=== PATIENT | female | born 1975 | race Caucasian/White ===

== ENCOUNTER 2017-03-17 17:44 | Emergency (ER) | payer OTHER ==
[~2017-03-17] VITALS: Ht 160 cm; Wt 70.0 kg
[~2017-03-17 17:44] MED LIST: AMLO10 PO; CIPR500T4 PO; LORTA5 PO; ZOFR4TAB3 SL
[2017-03-17 17:49] VITALS: BP 149/89; PULSE 79; RESP 16; TEMP 98.5; O2SAT 100
[2017-03-17] MEDS ORDERED: SUBO8MIS SL (17:58)
[2017-03-17] MEDS ORDERED: CLON0.2T PO (17:58)
[2017-03-17 18:11] LABS: BLOOD, URINE NEG (NEG); GLUCOSE,URINE NEG (NEG); KETONE, URINE NEG (NEG); NITRITE,URINE NEG (NEG)
[2017-03-17 18:18] LABS: URINE COLOR STRAW (YELLW/STRAW)
[2017-03-17 18:19] LABS: COMMENT (UR) CULT NOT INDICATED; CULTURE IF INDICATED CULT NOT INDICATED; SQUAMOUS EPITHELIAL CELL URINE 0-5 /hpf (0-5)
--- NOTE | 2017-03-17 18:22 | PD ---
HPI Chief Complaint: Flank/Kidney Pain Time Seen by Provider: 18:01 Travel History International Travel<30 days: No Contact w/Intl Traveler<30days: No Traveled to known affect area: No History of Present Illness HPI Patient is a 41-year-old female who presents to emergency room with complaints of possible UTI. Reports that for the past week, she has noticed a strong odor from her urine as well as dark urine. Reports that she self medicated with her mother's amoxicillin with no relief of symptoms. Patient reports that now she has pain to her right kidney, reports no fevers or chills, she is concerned that she is progressing into a kidney infection as this has happened in the past. Denies urinary frequency or urgency or hematuria or dysuria at this time. Denies n/v, constipation/diarrhea. PFSH Past Medical History Hx Anticoagulant Therapy: No Autoimmune Disease: Yes (RELAPSING POLYCHONDRITIS) Anxiety: Yes Cardiovascular Problems: Yes (HTN) Diabetes: No Diminished Hearing: No Hypertension: Yes Immunizations Current: Yes Tetanus Vaccination: > 5 Years Influenza Vaccination: No ?: Not Menopausal: No : 5 Para: 2 Miscarriage: 2 : 1 Dilation and Curettage (D&C): Yes (1999, 2002) Past Surgical History Cholecystectomy: Yes Gynecologic Surgery: Yes (ENDOMETRIAL ABLATION) Social History Alcohol Use: Yes (occ) Tobacco Use: Yes (1 PPD ) Substance Use: No Allergies-Medications (Allergen,Severity, Reaction): Coded Allergies: Toradol (Verified Allergy, Severe, FACIAL SWELLING, 03/17/17) Reported Meds & Prescriptions Reported Meds & Active Scripts Active Reported Suboxone Sublingual Film (Buprenorphine-Naloxone Sublingual Film) 8-2 Mg Film 1 Film SL Unique ID number required: Clonidine (Clonidine HCl) 0.2 Mg Tab 0.2 Mg PO BID Review of Systems General / Constitutional: No: Fever Eyes: No: Visual changes HENT: No: Headaches Cardiovascular: No: Chest Pain or Discomfort Respiratory: No: Shortness of Breath Gastrointestinal: No: Abdominal Pain Genitourinary: Positive: Other (right sided flank pain, "dark urine"), No: Urgency, Frequency, Dysuria, Nocturia, Hematuria, Hesitancy Musculoskeletal: No: Pain Skin: No Rash Neurologic: No: Weakness Psychiatric: No: Depression Endocrine: No: Polydipsia Hematologic/Lymphatic: No: Easy Bruising Physical Exam Narrative GENERAL: nad, nontoxic SKIN: Focused skin assessment warm/dry. HEAD: Atraumatic. Normocephalic. ENT: No nasal bleeding or discharge. Mucous membranes pink and moist. NECK: Trachea midline. No JVD. CARDIOVASCULAR: Regular rate and rhythm. No murmur appreciated. RESPIRATORY: No accessory muscle use. Clear to auscultation. Breath sounds equal bilaterally. GASTROINTESTINAL: Abdomen soft, non-tender, nondistended. MUSCULOSKELETAL: No obvious deformities. No clubbing. No cyanosis. No edema. NEUROLOGICAL: Awake and alert.Normal speech. PSYCHIATRIC: Appropriate mood and affect; insight and judgment normal. Data Data Last Documented VS Vital Signs Date Time Temp Pulse Resp B/P Pulse Ox O2 Delivery O2 Flow Rate FiO2 03/17/17 18:24 68 16 147/80 99 Room Air 03/17/17 17:49 98.5 Orders Urinalysis - C+S If Indicated (03/17/17 17:48) Ed Urine Pregnancytest Poc (03/17/17 18:01) Basic Metabolic Panel (Bmp) (03/17/17 18:02) Complete Blood Count With Diff (03/17/17 18:02) Iv Access Insert/Monitor (03/17/17 18:02) Labs Laboratory Tests Test 03/17/17 03/17/17 18:00 18:15 Urine Color STRAW Urine Turbidity CLEAR Urine pH 7.0 Urine Specific [place] Pos 1.003 Urine Protein NEG mg/dL Urine Glucose (UA) NEG mg/dL Urine Ketones NEG mg/dL Urine Occult Blood NEG Urine Nitrite NEG Urine Bilirubin NEG Urine Leukocyte Esterase NEG Urine Squamous Epithelial 0-5 /hpf Cells Microscopic Urinalysis Comment CULT NOT INDICATED White Blood Count 12.8 TH/MM3 Red Blood Count 4.79 MIL/MM3 Hemoglobin 14.6 GM/DL Hematocrit 42.8 % Mean Corpuscular Volume 89.4 FL Mean Corpuscular Hemoglobin 30.5 PG Mean Corpuscular Hemoglobin 34.1 % Concent Red Cell Distribution Width 12.7 % Platelet Count 205 TH/MM3 Mean Platelet Volume 9.5 FL Neutrophils (%) (Auto) 46.4 % Lymphocytes (%) (Auto) 42.3 % Monocytes (%) (Auto) 7.7 % Eosinophils (%) (Auto) 2.4 % Basophils (%) (Auto) 1.2 % Neutrophils # (Auto) 5.9 TH/MM3 Lymphocytes # (Auto) 5.4 TH/MM3 Monocytes # (Auto) 1.0 TH/MM3 Eosinophils # (Auto) 0.3 TH/MM3 Basophils # (Auto) 0.2 TH/MM3 CBC Comment AUTO DIFF Sodium Level 139 MEQ/L Potassium Level 4.3 MEQ/L Chloride Level 103 MEQ/L Carbon Dioxide Level 30.0 MEQ/L Anion Gap 6 MEQ/L Blood Urea Nitrogen 10 MG/DL Creatinine 0.72 MG/DL Estimat Glomerular Filtration 90 ML/MIN Rate Random Glucose 87 MG/DL Calcium Level 8.9 MG/DL MDM Medical Decision Making Medical Screen Exam Complete: Yes Emergency Medical Condition: Yes Interpretation(s) Vital Signs Date Time Temp Pulse Resp B/P Pulse Ox O2 Delivery O2 Flow Rate FiO2 03/17/17 17:51 79 16 03/17/17 17:49 98.5 79 16 149/89 100 Differential Diagnosis UTI, pyelonephritis, electrolyte abnormality Narrative Course 41-year-old female who presents to emergency room for evaluation of UTI versus pyelonephritis. VSS at this time. UA as well as bmp ordered. Laboratory Tests Test 03/17/17 18:00 Urine Color STRAW (YELLW/STRAW) Urine Turbidity CLEAR (CLEAR) Urine pH 7.0 (5.0-8.5) Urine Specific [place] Pos 1.003 (1.002-1.035) Urine Protein NEG mg/dL (NEG-TRACE) Urine Glucose (UA) NEG mg/dL (NEG) Urine Ketones NEG mg/dL (NEG) Urine Occult Blood NEG (NEG) Urine Nitrite NEG (NEG) Urine Bilirubin NEG (NEG) Urine Leukocyte Esterase NEG (NEG) Urine Squamous Epithelial 0-5 /hpf (0-5) Cells Microscopic Urinalysis Comment CULT NOT INDICATED UA with no leuk esterase, no nitrites, no blood, patient with most likely dehyrated and not drinking enough fluids which could explain dark urine. Laboratory Tests Test 03/17/17 03/17/17 18:00 18:15 Urine Color STRAW (YELLW/STRAW) Urine Turbidity CLEAR (CLEAR) Urine pH 7.0 (5.0-8.5) Urine Specific [place] Pos 1.003 (1.002-1.035) Urine Protein NEG mg/dL (NEG-TRACE) Urine Glucose (UA) NEG mg/dL (NEG) Urine Ketones NEG mg/dL (NEG) Urine Occult Blood NEG (NEG) Urine Nitrite NEG (NEG) Urine Bilirubin NEG (NEG) Urine Leukocyte Esterase NEG (NEG) Urine Squamous Epithelial 0-5 /hpf (0-5) Cells Microscopic Urinalysis Comment CULT NOT INDICATED White Blood Count 12.8 TH/MM3 (4.0-11.0) Red Blood Count 4.79 MIL/MM3 (4.00-5.30) Hemoglobin 14.6 GM/DL (11.6-15.3) Hematocrit 42.8 % (35.0-46.0) Mean Corpuscular Volume 89.4 FL (80.0-100.0) Mean Corpuscular Hemoglobin 30.5 PG (27.0-34.0) Mean Corpuscular Hemoglobin 34.1 % Concent (32.0-36.0) Red Cell Distribution Width 12.7 % (11.6-17.2) Platelet Count 205 TH/MM3 (150-450) Mean Platelet Volume 9.5 FL (7.0-11.0) Neutrophils (%) (Auto) 46.4 % (16.0-70.0) Lymphocytes (%) (Auto) 42.3 % (9.0-44.0) Monocytes (%) (Auto) 7.7 % (0.0-8.0) Eosinophils (%) (Auto) 2.4 % (0.0-4.0) Basophils (%) (Auto) 1.2 % (0.0-2.0) Neutrophils # (Auto) 5.9 TH/MM3 (1.8-7.7) Lymphocytes # (Auto) 5.4 TH/MM3 (1.0-4.8) Monocytes # (Auto) 1.0 TH/MM3 (0-0.9) Eosinophils # (Auto) 0.3 TH/MM3 (0-0.4) Basophils # (Auto) 0.2 TH/MM3 (0-0.2) CBC Comment AUTO DIFF Sodium Level 139 MEQ/L (136-145) Potassium Level 4.3 MEQ/L (3.5-5.1) Chloride Level 103 MEQ/L (98-107) Carbon Dioxide Level 30.0 MEQ/L (21.0-32.0) Anion Gap 6 MEQ/L (5-15) Blood Urea Nitrogen 10 MG/DL (7-18) Creatinine 0.72 MG/DL (0.50-1.00) Estimat Glomerular Filtration 90 ML/MIN (>89) Rate Random Glucose 87 MG/DL (74-106) Calcium Level 8.9 MG/DL (8.5-10.1) ua benign, workup benign, patient does not have uti, discussed need to drink plenty of fluids, will have her return to ER as needed. patient happy with plan of care Diagnosis Primary Impression: Dehydration Additional Impression: Right flank pain Patient Instructions: General Instructions Additional Instructions: Please follow up with your primary care doctor Return to ER if symptoms worsen or progress Return to ER as needed Please drink plenty of fluids Take acetaminophen for pain Disposition: 01 DISCHARGE HOME Condition: Stable Elsa Pereira DO Mar 17, 2017 18:22
[2017-03-17 18:24] VITALS: BP 147/80; PULSE 68; RESP 16; O2SAT 99
[2017-03-17 18:24] LABS: AUTOMATED NEUTROPHIL # 5.9 TH/MM3 (1.8-7.7); BASOPHIL # 0.2 TH/MM3 (0-0.2); BASOPHIL % 1.2 % (0.0-2.0); EOSINOPHIL # 0.3 TH/MM3 (0-0.4); EOSINOPHIL % 2.4 % (0.0-4.0); HEMATOCRIT 42.8 % (35.0-46.0); LYMPH % 42.3 % (9.0-44.0); LYMPHOCYTE # 5.4 TH/MM3 (1.0-4.8); MEAN CELL VOLUME 89.4 FL (80.0-100.0); MEAN CORPUSCULAR HEMOGLOBIN 30.5 PG (27.0-34.0); MEAN CORPUSCULAR HGB CONC 34.1 % (32.0-36.0); MONO % 7.7 % (0.0-8.0); NEUT % 46.4 % (16.0-70.0); PLATELET COUNT 205 TH/MM3 (150-450); RED BLOOD COUNT 4.79 MIL/MM3 (4.00-5.30); RED CELL DISTRIBUTION WIDTH 12.7 % (11.6-17.2); WHITE BLOOD COUNT 12.8 TH/MM3 (4.0-11.0)
[2017-03-17 18:33] LABS: POTASSIUM 4.3 MEQ/L (3.5-5.1)
[2017-03-17 18:56] LABS: HEMO FLAGS AUTO DIFF
[2017-03-17 19:16] LABS: BANDS 1 % (0-6); BASOPHILS 1 % (0-2); EOSINOPHILS 3 % (0-4); NEUTROPHIL # MANUAL DIFF 6.8 TH/MM3 (1.8-7.7); PLATELET ESTIMATE SMEAR NORMAL (NORMAL); PLATELET MORPHOLOGY NORMAL (NORMAL); POLYS (SEG NEUTROPHILS) 52 % (16-70); SCAN/DIFF FINAL DIFF MANUAL; WBC DIFF SAMPLE 100
== END 2017-03-17 19:11 | disposition home or self-care (01) ==
LOC: PHED 17:44
DX: E86.0 Dehydration (principal); R10.9 Unspecified abdominal pain
CPT/HCPCS: 80048; 81001; 84703; 85007; 85027; 99283